=== PATIENT | male | born 1975 | race Caucasian/White ===

== ENCOUNTER 2016-05-23 05:02 | Day surgery (SDC) | payer BC ==
[2016-05-22 09:21] VITALS: BMI 37.2
[2016-05-23] MEDS ORDERED: ROPIVACAINE HCL 0.5% 30ML VIAL ONE (07:43)
[2016-05-23] MEDS ORDERED: MIDAZOLAM HCL 2 MG/2 ML SINGLE DOSE VIAL ONE ×2 (07:44)
--- NOTE | 2016-05-23 08:34 | HP ---
Satellite [facility] - Chief Complaint Chief Complaint: right shoulder pain - Past Medical History Allergies/Adverse Reactions: Allergies Allergy/AdvReac Type Severity Reaction Status Date / Time No Known Drug Allergies Allergy Verified 05/23/16 07:43 - Current Medications Current Medications: Medication Instructions Recorded Naproxen [Naprosyn -] 250 mg PO PRN PRN 05/22/16 Metaxalone [Skelaxin] 800 mg PO TID PRN 05/23/16 Oxycodone HCl/Acetaminophen 1 - 2 tab PO Q6H #50 tab MDD 8 05/23/16 [Percocet 5-325 mg Tablet -] Satellite Physical Exam - Physical Examination Vital Signs: Vital Signs Period Temp Pulse Resp BP Sys/Jarrett Pulse Ox Last 24 Hr 98.0 F 71 18 111/79 99 General Appearance: Well Nourished, Well Developed, Alert & Oriented x3 ENT: Clear Lung: Normal air movement Heart: Regular rate & rhythm Extremities: Other (right shoulder- +ttp, dec rom, + neer, + malik, nvi) Neurological: Intact, Alert, Oriented Satellite Impression/Plan - Impression/Plan Impression: right shoulder impingement/rct Operative Procedure: right shoudler arthroscopy SAD with possible RCR Date to be Performed: 05/23/16
[2016-05-23] MEDS ORDERED: ceFAZolin SODIUM 1 GM VIAL IVPB ONE (08:37)
[2016-05-23] MEDS ORDERED: PROPOFOL 20 ML ONE ×2 (09:05)
[2016-05-23] MEDS ORDERED: oxyCODONE HCL 5 MG TABLET PO PRN (09:09)
[2016-05-23] MEDS ORDERED: PROMETHAZINE HCL 25 MG/1 ML VIAL IVPUSH PRN (09:09)
[2016-05-23] MEDS ORDERED: ONDANSETRON 4 MG/2 ML VIAL IVPUSH PRN (09:09)
[2016-05-23] MEDS ORDERED: LACTATED RINGERS SOLUTION 1,000 ML IV SCH (09:15)
--- NOTE | 2016-05-23 09:30 | OP ---
Operative Note - Note: Operative Date: 05/23/16 ([facility]) Pre-Operative Diagnosis: right shoulder impingement, rct Operation: right shoulder arthroscopy labral repair, SAD, extensive debridement of bone and soft tissue Post-Operative Diagnosis: Other (labral tear) Surgeon: Lucho Shetty Director Of Infection Control: Al Borrero Anesthesiologist/FOLLOW UP SPECIALIST: Ramona Weber Anesthesia: Local, MAC Specimens Removed: shavings Estimated Blood Loss (mls): 5 Operative Report Dictated: Yes
[2016-05-23] MEDS ORDERED: ceFAZolin SODIUM 1 GM VIAL ONE (10:59)
[2016-05-23 12:34] VITALS: BP 116/84; PULSE 70; TEMP 98.1
--- NOTE | 2016-05-24 08:37 | OP ---
DATE OF OPERATION: 05/23/2016 PREOPERATIVE DIAGNOSIS: Internal derangement, right shoulder. POSTOPERATIVE DIAGNOSIS: Internal derangement, right shoulder. PROCEDURE: Right superior labrum anterior to posterior repair and debridement of partial rotator cuff tear and bursectomy in subacromial space. SURGEON ATTENDING: Lucho Shetty MD RN RADIATION ONCOLOGY: RAMY Sommer ANESTHESIA: Regional and general. CLOSURE: Two push locks with Fiberstick suture for labrum and 3-0 nylon for skin. ESTIMATED BLOOD LOSS: Negligible. COMPLICATIONS: To recovery room in stable condition. DESCRIPTION OF PROCEDURE: Patient was taken to the operating room on May 23, 2016. Scalene block as well as IV sedation was administered by the anesthesiologist. IV Kefzol was administered prophylactically prior to the case. Patient was placed in the beach chair position with all prominences well padded. The right shoulder was prepped and draped in the usual sterile fashion. Posterior portal was made 2 fingerbreadths below the acromion first with a 15 blunt trocar. Circumferential exam of the glenohumeral joint revealed the following: Intact glenoid and humeral head articular cartilage, no loose bodies in the axillary pouch, intact subscapularis towards insertion. Looking superior, the biceps tendon was intact; however, its anchor on the superior labrum had dropped inferiorly. The middle glenohumeral ligament which was attaching to the labrum at the 1 to 2 o'clock region was also found to be dropped further inferiorly. The supraspinatus, infraspinatus was found to have some bursal-sided tearing, but it was of minor thickness and it was therefore just debrided. An anterior portal was made in the superior anterior region and using a spinal needle and 15 blade. A shaver was placed in the and the partial rotator cuff tear was debrided down to smooth and healthy rotator cuff. The area between the labrum, biceps anchor and the glenoid was shaved, removing any fibrous tissue from this region, and the bone in that region was rasped to stimulate bleeding bone. An accessory anterior portal was made just superior to the subscapularis tendon first with a spinal needle and followed by a blunt trocar. Two push lock anchors were placed, one at the 1 o'clock position, and one at the 11:30 position, repairing the superior labrum to the superior glenoid rim. Excellent fixation was obtained. Probing of the biceps revealed good stability. The middle glenohumeral ligament had a better orientation inside the shoulder and was left alone. Rest of the labrum was found to be intact. The shoulder was irrigated out, and then the fluid was drained from the shoulder. The trocars were then removed. The posterior trocar was redirected into the subacromial space and accessory lateral portal was made. A large amount of bursal tissue was seen in the subacromial space. This was debrided using the shaver and the ArthroCare device. No spurs were encountered on the subacromial side of the acromion; however, it was a tight space, so a debridement on the surface of the acromion was performed, achieving excellent space. The coracoacromial ligament left in situ. Bursal tissue encasing the humeral head was debrided, exposing healthy rotator cuff tissue. Probing of the rotator cuff did not reveal a high-grade, partial-thickness tear and thus the rotator cuff was left in situ. Trocars were removed. The portals were closed with 3-0 nylon. Sterile pressure dressing was applied. Patient awakened from anesthesia, transferred to recovery in stable condition. No complications. Estimated blood loss negligible. Nick [id number]
--- NOTE | 2016-05-24 12:17 | PATH ---
Surgical Pathology Report Patient Name: NORBERTO GUTIERREZ Med. Rec. #: [id number] /Age/Gender: 1975 (Age: 40) / M Account: [id number] Location: [facility] SURGICAL Taken: 05/23/2016 Received: 05/23/2016 Reported: 05/24/2016 Physicians: Lucho Shetty M.D. Specimen(s) Received RIGHT SHOULDER SHAVINGS Clinical History Right shoulder impingement syndrome Final Diagnosis RIGHT SHOULDER, ARTHROSCOPIC SHAVING: PORTIONS OF SYNOVIUM, CARTILAGE, SKELETAL MUSCLE AND BONE CONSISTENT WITH ARTHROSCOPIC SHAVINGS. Electronically Signed Emmett Whitney M.D. Gross Description Received in formalin, labeled "right shoulder shavings," is a 4.0 x 3.0 x 0.4 cm. aggregate of magana-yellow soft tissue fragments. A business office representative portion is submitted in one cassette. /05/23/201605/23/2016
== END 2016-05-23 12:25 | disposition home or self-care (01) ==
LOC: JASU-SURG 05:02
PROVIDERS: ATTEND Orthopaedic Surgery
PROC: 0RBJ4ZZ Excision of Right Shoulder Joint, Percutaneous Endoscopic Approach (ICD-10-PCS; 2016-05-23)
PROC: 0MM14ZZ Reattachment of Right Shoulder Bursa and Ligament, Percutaneous Endoscopic Approach (ICD-10-PCS; principal; 2016-05-23 08:30)
DX: M24.811 Other specific joint derangements of right shoulder, not elsewhere classified (principal)
CPT/HCPCS: 88304-TC; 94760